=== PATIENT | female | born 1985 | race American Indian/Alaskan Native ===

== ENCOUNTER 2017-10-31 21:02 | Emergency (ER) | payer MEDICAID ==
[2017-11-01] MEDS ORDERED: BENADRYL PO ONE (01:14)
[2017-11-01] MEDS ORDERED: DECADRON IM ONE (01:14)
[2017-11-01] MEDS ORDERED: ULTRAM PO ONE (01:14)
[2017-11-01] MEDS ORDERED: REGLAN PO ONE (01:14)
--- NOTE | 2017-11-01 01:21 | Emergency Department Report ---
ED Headache HPI - General Chief Complaint: Headache Stated Complaint: VERDUZCO Time Seen by Provider: 11/01/17 01:14 - History of Present Illness Initial Comments: Patient is a 32-year-old [place] female with a history of migraine headaches presents for right temporal headache for the last 3 days this is the same location duration and intensity of previous headaches patient advised that she just TO the ER for treatment she gets a headache headache is 6/10 at this time is no nausea no vomiting no visual changes no dizziness no lightheadedness Timing/Duration: other (3 days ) Quality: moderate Head Injury Location: temporal Recent Head Trauma: frequent headaches, chronic headaches Associated Symptoms: denies: denies symptoms, confusion, fatigue, facial pain, fever/chills, flushing, loss of consciousness, nausea/vomiting, nasal congestion , nasal drainage, numbness in legs/feet, seizures, sinus infection, stiff neck, vision changes, weakness Allergies/Adverse Reactions: Allergies Sulfa (Sulfonamide Antibiotics) Allergy (Verified 08/13/15 21:49) Rash Home Medications: Ambulatory Orders Ibuprofen 800 mg PO TID PRN #30 tablet 11/01/17 Metoclopramide [Reglan] 10 mg PO ACHS PRN #30 tablet 11/01/17 diphenhydrAMINE [Benadryl CAP] 25 mg PO Q6HR PRN #30 capsule 11/01/17 ED Review of Systems ROS: Stated complaint: VERDUZCO Other details as noted in HPI Constitutional: denies: chills, fever Eyes: denies: eye pain, eye discharge, vision change ENT: denies: ear pain, throat pain Respiratory: denies: cough, shortness of breath, wheezing Cardiovascular: denies: chest pain, palpitations Endocrine: no symptoms reported Gastrointestinal: denies: abdominal pain, nausea, diarrhea Genitourinary: denies: urgency, dysuria, discharge Musculoskeletal: denies: back pain, joint swelling, arthralgia Skin: denies: rash, lesions Neurological: headache. denies: weakness, numbness, paresthesias, confusion, abnormal gait, vertigo Psychiatric: denies: anxiety, depression ED Past Medical Hx - Past Medical History Hx Headaches / Migraines: Yes - Surgical History Additional Surgical History: tubil ligation,D/C - Social History Smoking Status: Current Every Day Smoker Substance Use Type: Alcohol - Medications Home Medications: Home Medications Medication Instructions Recorded Confirmed Last Taken Type Ibuprofen 800 mg PO TID PRN #30 tablet 11/01/17 Unknown Rx Metoclopramide [Reglan] 10 mg PO ACHS PRN #30 tablet 11/01/17 Unknown Rx diphenhydrAMINE [Benadryl CAP] 25 mg PO Q6HR PRN #30 capsule 11/01/17 Unknown Rx ED Physical Exam - General Limitations: No Limitations General appearance: alert, in no apparent distress - Head Head exam: Present: atraumatic, normocephalic - Eye Eye exam: Present: normal appearance, PERRL, EOMI. Absent: conjunctival injection, nystagmus Pupils: Present: normal accommodation - ENT ENT exam: Present: normal orophraynx, mucous membranes moist, TM's normal bilaterally, normal external ear exam - Neck Neck exam: Present: normal inspection, full ROM. Absent: tenderness, meningismus, lymphadenopathy, thyromegaly - Respiratory Respiratory exam: Present: normal lung sounds bilaterally. Absent: respiratory distress, wheezes, stridor, chest wall tenderness - Cardiovascular Cardiovascular Exam: Present: regular rate, normal rhythm, normal heart sounds. Absent: systolic murmur, diastolic murmur, rubs, gallop - GI/Abdominal GI/Abdominal exam: Present: soft, normal bowel sounds - Rectal Rectal exam: Present: deferred - Extremities Exam Extremities exam: Present: normal inspection - Back Exam Back exam: Present: normal inspection - Neurological Exam Neurological exam: Present: alert, oriented X3, CN II-XII intact, normal gait, motor sensory deficit, reflexes normal - Expanded Neurological Exam Expanded Patient oriented to: Present: person, place, time Speech: Present: fluid speech Cranial nerves: EOM's Intact: Normal, Gag Reflex: Normal, Tongue Deviation: Normal, Nystagmus: Normal, Facial Sensation: Normal, Facial Palsy with Forehead Movement: Normal, Facial Palsy without Forehead Movement: Normal Cerebellar function: Finger to Nose: Normal Upper motor neuron: Rell Neglect: Normal Motor strength exam: RUE: 5, LUE: 5, RLE: 5, LLE: 5 Best Eye Response ([place]): (4) open spontaneously Best Motor Response ([place]): (6) obeys commands (she is) Best Verbal Response ([place]): (5) oriented [place] Total: 15 - Psychiatric Psychiatric exam: Present: normal affect, normal mood - Skin Skin exam: Present: warm, dry, intact, normal color. Absent: rash ED Course Vital Signs 10/31/17 21:31 Temperature 98.2 F Pulse Rate 74 Respiratory 18 Rate Blood Pressure 117/75 O2 Sat by Pulse 100 Oximetry ED Medical Decision Making - Medical Decision Making His usual migraine headache this patient usually or deficits No fevers no chills no visual changes patient is tolerating by mouth intake to baseline pain is improved with medications given in ED plan DC'd home Benadryl and Reglan and ibuprofen patient will follow up with neurology upon appointment patient verbalizes agreement and understanding with same patient for DC'd home in stable condition at this time Critical care attestation.: If time is entered above; I have spent that time in minutes in the direct care of this critically ill patient, excluding procedure time. ED Disposition Clinical Impression: Headache Qualifiers: Headache type: cluster Headache chronicity pattern: chronic headache Intractability: not intractable Qualified Code(s): G44.029 - Chronic cluster headache, not intractable Chronic headache Qualifiers: Headache type: tension-type Intractability: not intractable Qualified Code(s): G44.229 - Chronic tension-type headache, not intractable Disposition: DC-01 TO HOME OR SELFCARE Is pt being admited?: No Does the pt Need Aspirin: No Condition: Good Instructions: Cluster Headache (ED), Acute Headache (ED) Prescriptions: diphenhydrAMINE [Benadryl CAP] 25 mg PO Q6HR PRN #30 capsule PRN Reason: Headache Ibuprofen 800 mg PO TID PRN #30 tablet PRN Reason: Headache Metoclopramide [Reglan] 10 mg PO ACHS PRN #30 tablet PRN Reason: Headache Referrals: ROBERT HAMPTON MD [Referring] - 3-5 Days Forms: Work/School Release Form(ED) Time of Disposition: 01:28
[2017-11-01 01:52] VITALS: BP 120/76
== END 2017-11-01 01:52 | disposition home or self-care (01) ==
LOC: ED 21:02
DX: G44.029 Chronic cluster headache, not intractable (principal); F17.200 Nicotine dependence, unspecified, uncomplicated; Z98.51 Tubal ligation status
CPT/HCPCS: 96372; 99282; J1100

== ENCOUNTER 2018-03-22 16:14 | Emergency (ER) | payer MEDICAID ==
--- NOTE | 2018-03-22 17:40 | Emergency Department Report ---
Blank Doc - Documentation Documentation: 33 y.o. female presents to ER with blisters to bilateral toes x 1 month. Reports using new steal toe boats. Reports pain burning sensation 8/10 worse with ambulation. LMP 03/08/18. No PMH. no other cc Fast Track for evaluation
--- NOTE | 2018-03-22 18:08 | Emergency Department Report ---
HPI - General Chief Complaint: Extremity Injury, Lower Time Seen by Provider: 03/22/18 17:36 - HPI HPI: Patient is a 33-year-old female with no problem medical history presents to ED complaining of blisters sustained to her bilateral toes for the past month. Patient states that she usually wears boots at work which she has on every day 1 month. Patient's physician noticed some blisters on her toes is getting worse. She denies fevers/chills/vomiting and problems ED Past Medical Hx - Past Medical History Hx Headaches / Migraines: Yes - Surgical History Additional Surgical History: tubil ligation,D/C - Social History Smoking Status: Current Every Day Smoker Substance Use Type: None - Medications Home Medications: Home Medications Medication Instructions Recorded Confirmed Last Taken Type Ibuprofen 800 mg PO TID PRN #30 tablet 11/01/17 Unknown Rx Metoclopramide [Reglan] 10 mg PO ACHS PRN #30 tablet 11/01/17 Unknown Rx diphenhydrAMINE [Benadryl CAP] 25 mg PO Q6HR PRN #30 capsule 11/01/17 Unknown Rx Bacitracin Zinc/Polymyxin B 1 gm TP TID #1 tube 03/22/18 Unknown Rx [Double Antibiotic Ointment] cephALEXin [Keflex] 500 mg PO Q12HR #10 cap 03/22/18 Unknown Rx ED Review of Systems ROS: Stated complaint: SORE TOES Other details as noted in HPI Comment: All other systems reviewed and negative Physical Exam - Physical Exam Vital Signs: Vital Signs 03/22/18 17:37 Temperature 98.2 F Pulse Rate 99 H Blood Pressure 142/96 O2 Sat by Pulse 100 Oximetry Physical Exam: GENERAL: Alert and oriented x3, no apparent distress, Normal Gait, atraumatic. HEAD: Head is normocephalic and a-traumatic. EXTREMITIES/MUSCULOSKELETAL: No cyanosis, clubbing, rash, lesions or edema. Full ROM bilaterally. UE/LE Pulses 2+ bilaterally. Small blisters, nonbleeding, noted on bilateral toes. Mildly tender to palpation. NEUROLOGIC: The patient is cooperative with no focal neurologic deficits. SKIN: Warm and dry, No lesions, No ulceration or induration present. ED Course Vital Signs 03/22/18 17:37 Temperature 98.2 F Pulse Rate 99 H Blood Pressure 142/96 O2 Sat by Pulse 100 Oximetry Critical care attestation.: If time is entered above; I have spent that time in minutes in the direct care of this critically ill patient, excluding procedure time. ED Disposition Clinical Impression: Blister of toe without infection Disposition: TO HOME OR SELFCARE Is pt being admited?: No Condition: Stable Instructions: Blister (ED) Additional Instructions: Make sure to follow up with the primary care physician as discussed. Take all your medications as you've been prescribed. Abstain from wearing the same socks twice in the day. If you have any worsening symptoms or develop new symptoms please return to ED immediately. Prescriptions: Bacitracin Zinc/Polymyxin B [Double Antibiotic Ointment] 1 gm TP TID #1 tube cephALEXin [Keflex] 500 mg PO Q12HR #10 cap Referrals: MEAGAN TIDWELL MD [Primary Care Provider] - 3-5 Days Forms: Work/School Release Form(ED) Time of Disposition: 18:11
== END 2018-03-22 18:24 | disposition home or self-care (01) ==
LOC: ED 16:14
CPT/HCPCS: 99281; 99282